=== PATIENT | female | born 1980 | race Two or more races ===

== ENCOUNTER 2019-02-17 05:32 | Day surgery (SDC) | payer OTHER ==
[2019-02-16 10:51] LABS: HEMATOCRIT 40.9 % (36.0-47.0); MEAN CORPUSCULAR HGB CONC 34.2 g/dL (32.0-36.0); MEAN CORPUSCULAR VOLUME 88 fl (80-97); PLATELET COUNT 262 10^3/uL (150-450); RED BLOOD COUNT 4.67 10^6/uL (3.72-5.28); RED CELL DISTRIBUTION WIDTH 13.4 % (11.5-14.0); WHITE BLOOD COUNT 5.8 10^3/uL (4.0-10.5)
[2019-02-16 10:51] LABS: APPEARANCE,URINE CLEAR; BILIRUBIN,URINE NEGATIVE (NEGATIVE); COLOR,URINE STRAW; GLUCOSE, URINE NEGATIVE (NEGATIVE); KETONES,URINE NEGATIVE (NEGATIVE); LEUKOCYTE ESTERASE,URINE NEGATIVE (NEGATIVE); NITRITE,URINE NEGATIVE (NEGATIVE); PROTEIN,URINE NEGATIVE (NEGATIVE); URINE SPECIFIC GRAVITY 1.005; UROBILINOGEN,URINE NEGATIVE mg/dL (<2.0)
[~2019-02-17 05:32] MED LIST: LACTATED RINGERS 1000 ML IV PRN; LIDOCAINE 0.5% INJ-PF (5 MG/ML) 50 ML SDV SUBCUT PRN
[2019-02-17] MEDS ORDERED: FENTANYL CITRATE INJ/PF 100 MCG/2 ML AMPUL ONE ×2 (07:02→08:38)
[2019-02-17] MEDS ORDERED: MIDAZOLAM 2 MG/2 ML INJ ONE (07:02)
[2019-02-17] MEDS ORDERED: EPHEDRINE SULFATE INJ 50 MG/1 ML AMPULE ONE (07:03)
[2019-02-17] MEDS ORDERED: PROPOFOL INJ 200 MG/20 ML VIAL IV ONE (07:03)
[2019-02-17] MEDS ORDERED: ACETAMINOPHEN 1,000 MG/100 ML RTUPB IV ONE (07:03)
[2019-02-17] MEDS ORDERED: PROMETHAZINE HCL INJ 25 MG/1 ML VIAL IV PRN ×2 (07:05)
[2019-02-17] MEDS ORDERED: FENTANYL CITRATE INJ/PF 100 MCG/2 ML AMPUL IV PRN ×3 (07:05)
[2019-02-17] MEDS ORDERED: DIPHENHYDRAMINE HCL 50 MG/ML VIAL IV PRN (07:05)
[2019-02-17] MEDS ORDERED: ONDANSETRON HCL INJ/PF 4 MG/2 ML SDV IV PRN (07:05)
[2019-02-17] MEDS ORDERED: MEPERIDINE HCL/PF INJ 25 MG/1 ML DISP.SYRIN IV PRN (07:05)
[2019-02-17] MEDS ORDERED: MORPHINE SULFATE 10 MG/ML INJ IV PRN (07:05)
[2019-02-17] MEDS ORDERED: LIDOCAINE 2% INJ-PF (20 MG/ML) 10 ML AMPUL ONE (07:22)
[2019-02-17] MEDS ORDERED: DEXMEDETOMIDINE INJ 80 MCG/20 ML VIAL IV ONE (07:22)
[2019-02-17] MEDS ORDERED: SUGAMMADEX SODIUM 200 MG/2 ML SDV IV ONE (07:41)
[2019-02-17] MEDS ORDERED: IBUPROFEN 800 MG TABLET PO PRN (08:37)
[2019-02-17] MEDS ORDERED: MORPHINE SULFATE 10 MG/ML INJ IM PRN (08:37)
[2019-02-17] MEDS ORDERED: OXYCODONE-ACETAMINOPHEN 5-325 MG TABLET PO PRN ×2 (08:38)
[2019-02-17] MEDS ORDERED: MEPERIDINE HCL/PF INJ 25 MG/1 ML DISP.SYRIN ONE (08:39)
[2019-02-17] MEDS ORDERED: MORPHINE SULFATE 10 MG/ML INJ ONE (09:25)
[2019-02-17] MEDS ORDERED: OXYCODONE-ACETAMINOPHEN 5-325 MG TABLET ONE (11:41)
--- NOTE | 2019-02-17 12:19 | OPERATIVE REPORT E ---
Operative Report NAME: AKIRA MCNULTY : 1980 AGE: 39Y DATE OF SURGERY: 02/17/2019 ROOM: PREOPERATIVE DIAGNOSIS: Right ovarian cyst and right lower quadrant pain. POSTOPERATIVE DIAGNOSIS: Right ovarian cyst and right lower quadrant pain. OPERATION: Laparoscopic right oophorectomy. SURGEON: JEFFREY DONOHUE M.D. ANESTHESIA: Darius Stephens M.D. with general. FINDINGS: Normal left ovary. Enlarged right ovary with a small simple-appearing cyst. COMPLICATIONS: None. ESTIMATED BLOOD LOSS: 20 mL. SPECIMENS REMOVED: Right ovary. PROCEDURE IN DETAIL: The patient was taken to the operating room, prepared, and draped in a normal sterile fashion in a dorsal lithotomy position. Under sterile conditions, an in-and-out cath was performed of approximately 150 mL of clear urine. A sponge stick was then placed into the vagina for manipulation of the vaginal cuff as needed. Gloves were changed and attention was turned to the upper portion of the case where an umbilical skin incision was made with a scalpel, the Veress needle was introduced, and the abdomen was insufflated with approximately 2 L of CO2 gas. The Veress needle was removed and a 5 mm trocar was then placed under direct visualization. Another 5 mm trocar was placed in the left lower quadrant without difficulty. The patient was placed in Trendelenburg and the bowel was swept away with a blunt probe. The left ovary was inspected and found to be normal in appearance with no cysts, and the right ovary was inspected with the above findings. The rest of the peritoneal cavity was carefully inspected. The vaginal cuff, bowel, and liver all looked completely normal. There was a mild amount of pelvic congestion at the right ovary. The blunt probe was removed, a LigaSure was then introduced, and the IP ligament was localized and ligated with the LigaSure until the ovary was freed. The pedicle was inspected carefully and found to be very hemostatic. A 10 mm trocar was then placed in the right lower quadrant under direct visualization for removal of the ovary. An EndoCatch bag was placed through this trocar and the specimen was placed into the EndoCatch bag. The bag was deployed and then removed through the right incision. The other trocars were then removed. The abdomen was deflated through the umbilical trocar and this was removed. The fascia was closed at the right lower quadrant using 0 Vicryl. The skin was closed at all 3 sites using 4-0 Vicryl. The patient tolerated the procedure well. Sponge, lap and needle counts were correct x2. The patient was taken to recovery in stable condition. Sponge stick was removed from the vagina at the end of the case. DICTATING PHYSICIAN: JEFFREY DONOHUE M.D. [id number] PHY#: [id number] ID: [id number] JOB#: [id number] ACCT: [id number] cc:JEFFREY DONOHUE M.D. >
[2019-02-17 13:29] VITALS: BP 105/71
[2019-02-17] MEDS ORDERED: KETOROLAC TROMETHAMINE 60 MG/2 ML SDV ONE (14:19)
[2019-02-17] MEDS ORDERED: LIDOCAINE 2% INJ-PF (20 MG/ML) 2 ML AMPUL ONE (14:19)
[2019-02-17] MEDS ORDERED: SUCCINYLCHOLINE CHLORIDE INJ 200 MG/10 ML VIAL ONE (14:19)
[2019-02-17] MEDS ORDERED: DEXAMETHASONE SOD PHOSPHATE INJ 4 MG/1 ML VIAL ONE (14:19)
[2019-02-17] MEDS ORDERED: ONDANSETRON HCL INJ/PF 4 MG/2 ML SDV ONE (14:19)
[2019-02-17] MEDS ORDERED: ROCURONIUM BROMIDE INJ 50 MG/5 ML VIAL IV ONE (14:19)
[2019-02-17] MEDS ORDERED: METOCLOPRAMIDE HCL INJ/PF 10 MG/2 ML SDV ONE (14:19)
== END 2019-02-17 13:20 | disposition home or self-care (01) ==
LOC: OROUT 05:32
PROVIDERS: ATTEND Obstetrics & Gynecology
DX: N83.201 Unspecified ovarian cyst, right side (principal); N83.11 Corpus luteum cyst of right ovary; N83.01 Follicular cyst of right ovary; D64.9 Anemia, unspecified
CPT/HCPCS: 36415; 85027; 81005; 88307 ×2; 58661; J2250; J3490 ×5; J1100; J1885; J3010; J2175; J2765; J2270; J0330; J2405; J2704; J0131; 840